=== PATIENT | female | born 1940 | race Caucasian/White ===

== ENCOUNTER 2017-07-19 05:28 | Day surgery (SDC) | payer MEDICARE ==
[~2017-07-19] VITALS: Ht 165.1 cm; Wt 83.9 kg
[~2017-07-19 05:28] MED LIST: ASPI-555 PO; CARV12.511 PO; FURO20TA4 PO; GABA-531 PO; ISOS10TA8 PO; METF500T6 PO; NORT50CA PO; PARO-37 PO; SIMV40TA59 PO; [UNRECOGNIZED DRUG - OTHER] PO
[2017-07-19] MEDS ORDERED: SODIUM CHLORIDE 0.9% 1000ML 1,000 ML IV ONE (06:07)
[2017-07-19 06:15] VITALS: BP 168/87
[2017-07-19] MEDS ORDERED: PROPOFOL 10 MG/ML 20ML VIAL IV ONE (07:08)
[2017-07-19] MEDS ORDERED: FENTANYL CITRATE PF 50 MCG/1 ML 2ML VIAL ONE (07:08)
[2017-07-19] MEDS ORDERED: LIDOCAINE HCL 1% 20 ML VIAL ONE (07:08)
== END 2017-07-19 08:40 | disposition home or self-care (01) ==
LOC: ENDO 05:28 → DAH 05:28 → ENDO 08:40
PROVIDERS: ATTEND Internal Medicine
DX: K62.1 Rectal polyp (principal); K57.30 Diverticulosis of large intestine without perforation or abscess without bleeding; K52.9 Noninfective gastroenteritis and colitis, unspecified; E11.9 Type 2 diabetes mellitus without complications; F41.9 Anxiety disorder, unspecified; I10 Essential (primary) hypertension; I25.10 Atherosclerotic heart disease of native coronary artery without angina pectoris; F32.9 Major depressive disorder, single episode, unspecified; M19.90 Unspecified osteoarthritis, unspecified site; E78.5 Hyperlipidemia, unspecified; Z90.49 Acquired absence of other specified parts of digestive tract; Z98.890 Other specified postprocedural states; Z96.641 Presence of right artificial hip joint; Z90.12 Acquired absence of left breast and nipple; Z79.82 Long term (current) use of aspirin; Z95.1 Presence of aortocoronary bypass graft
CPT/HCPCS: 45380; 82948; 88305; A4606; J2704; J3010; J7030